=== PATIENT | female | born 1955 | race Caucasian/White ===

== ENCOUNTER 2019-11-25 11:19 | Emergency (ER) | payer MEDICAID ==
[~2019-11-25] VITALS: Ht 165.1 cm; Wt 65.9 kg
[2019-11-25] MEDS ORDERED: NORT25 PO (11:29)
[2019-11-25] MEDS ORDERED: HYD25 PO (11:29)
[2019-11-25] MEDS ORDERED: IBUP-2070 PO (11:29)
[2019-11-25] MEDS ORDERED: XALA2.5OS OU (11:29)
[2019-11-25] MEDS ORDERED: GABA-1181 PO (11:29)
[2019-11-25] MEDS ORDERED: ACET-66 PO (11:29)
[2019-11-25] MEDS ORDERED: INSLAN SQ (11:29)
[2019-11-25] MEDS ORDERED: VENL-193 PO (11:29)
[2019-11-25] MEDS ORDERED: SODIUM CHLORIDE 0.9% 1,000 ML IV ONE (11:45)
[2019-11-25 11:58] LABS: BASOPHILS % (AUTO) 0.3 % (0.0-2.0); EOSINOPHILS % (AUTO) 0.1 % (1.0-6.0); HEMATOCRIT 45.4 % (36-46); HEMOGLOBIN 14.9 g/dL (12.0-16.0); LYMPHOCYTES # (AUTO) 1.6 K/uL (1.0-4.8); LYMPHOCYTES % (AUTO) 12.5 % (22.0-44.0); MEAN CORPUSCULAR HGB CONC 32.9 G/dL (31.0-37.0); MEAN CORPUSCULAR VOLUME 91 fL (80-100); MONOCYTES # (AUTO) 0.5 K/uL (0.1-1.0); NEUTROPHILS # (AUTO) 10.3 K/uL (1.8-7.7); NEUTROPHILS % (AUTO) 83.1 % (40.0-70.0); PLATELET COUNT (AUTO) 265 K/uL (150-450); RED BLOOD CELL COUNT(AUTO) 4.98 MIL/uL (4.00-5.20); RED CELL DISTRIBUTION WIDTH 14.2 % (11.5-14.5)
[2019-11-25 12:20] LABS: CALCIUM, TOTAL 8.9 mg/dL (8.8-10.5); CREATININE 1.22 mg/dL (0.60-1.30); POTASSIUM 3.8 mmol/L (3.5-5.1)
[2019-11-25 12:26] LABS: ALBUMIN 4.2 g/dL (3.4-5.0); BILIRUBIN,TOTAL 0.4 mg/dL (0.1-1.0); TOTAL PROTEIN, SERUM 8.3 g/dL (6.4-8.2)
[2019-11-25 14:00] VITALS: BP 138/70
== END 2019-11-25 14:06 | disposition home or self-care (01) ==
LOC: EMS 11:24
DX: R53.83 Other fatigue (principal); F41.9 Anxiety disorder, unspecified; R53.1 Weakness; E11.9 Type 2 diabetes mellitus without complications; I10 Essential (primary) hypertension; F17.210 Nicotine dependence, cigarettes, uncomplicated
CPT/HCPCS: 80053; 82550; 82962; 83880; 84484; 85025; 93005; 99284; J7030

== ENCOUNTER 2019-12-26 17:51 | Emergency (ER) | payer MEDICAID ==
[~2019-12-26] VITALS: Ht 165.1 cm; Wt 68.2 kg
[~2019-12-26 17:51] MED LIST: ACET-66 PO; GABA-1181 PO; HYD25 PO; IBUP-2070 PO; INSLAN SQ; NORT25 PO; VENL-193 PO; XALA2.5OS OU
[2019-12-26 19:53] VITALS: BP 122/71
== END 2019-12-26 20:05 | disposition home or self-care (01) ==
LOC: EMS 17:51
DX: S00.12XA Contusion of left eyelid and periocular area, initial encounter (principal); S00.11XA Contusion of right eyelid and periocular area, initial encounter; S60.812A Abrasion of left wrist, initial encounter; I10 Essential (primary) hypertension; F41.9 Anxiety disorder, unspecified; F17.210 Nicotine dependence, cigarettes, uncomplicated; Z79.4 Long term (current) use of insulin; Z79.899 Other long term (current) drug therapy; W01.0XXA Fall on same level from slipping, tripping and stumbling without subsequent striking against object, initial encounter; Y93.89 Activity, other specified; Y92.89 Other specified places as the place of occurrence of the external cause; Y99.8 Other external cause status
CPT/HCPCS: 70450; 70486

== ENCOUNTER 2019-12-28 15:03 | Emergency (ER) | payer MEDICAID ==
[~2019-12-28] VITALS: Ht 165.1 cm; Wt 66.8 kg
[2019-12-28 16:38] VITALS: BP 109/52
== END 2019-12-28 17:01 | disposition home or self-care (01) ==
LOC: EMS 15:04
DX: S06.0X9A Concussion with loss of consciousness of unspecified duration, initial encounter (principal); F41.9 Anxiety disorder, unspecified; I10 Essential (primary) hypertension; F17.210 Nicotine dependence, cigarettes, uncomplicated; Z79.4 Long term (current) use of insulin; Z90.710 Acquired absence of both cervix and uterus; W19.XXXA Unspecified fall, initial encounter; Y93.89 Activity, other specified; Y92.89 Other specified places as the place of occurrence of the external cause; Y99.8 Other external cause status
CPT/HCPCS: 70450

== ENCOUNTER 2020-01-08 15:40 | Emergency (ER) | payer MEDICAID ==
[~2020-01-08] VITALS: Ht 167.6 cm; Wt 72.7 kg
[2020-01-08 16:16] LABS: GLUCOSE,POINT OF CARE 141 MG/DL (70-110)
[2020-01-08 16:45] VITALS: BP 105/67
[2020-01-08] MEDS ORDERED: ACETAMINOPHEN 500 MG TABLET PO ONE (17:30)
== END 2020-01-08 17:45 | disposition home or self-care (01) ==
LOC: EMS 15:40
DX: S00.03XA Contusion of scalp, initial encounter (principal); F10.129 Alcohol abuse with intoxication, unspecified; F17.210 Nicotine dependence, cigarettes, uncomplicated; F41.9 Anxiety disorder, unspecified; I10 Essential (primary) hypertension; W18.09XA Striking against other object with subsequent fall, initial encounter; Y93.89 Activity, other specified; Y92.89 Other specified places as the place of occurrence of the external cause; Y99.8 Other external cause status
CPT/HCPCS: 70450; 99406